=== PATIENT | male | born 1935 | race Caucasian/White ===

== ENCOUNTER 2023-03-02 06:57 | Outpatient (RCR) | payer OTHER, SELFPAY | END 2023-03-02 23:59 | disposition home or self-care (01) | LOC: RST 06:57 | PROVIDERS: ATTENDING PHYSICIAN Otolaryngology; FAMILY PHYSICIAN Family Medicine | DX: R13.14 Dysphagia, pharyngoesophageal phase (principal) | CPT/HCPCS: 92610 ==

== ENCOUNTER → 2023-05-27 06:32 | Day surgery (SDC) | payer OTHER, SELFPAY | LOC: GI 06:32 | PROVIDERS: ATTENDING PHYSICIAN Internal Medicine | DX: R13.10 Dysphagia, unspecified (principal); K22.2 Esophageal obstruction; K29.50 Unspecified chronic gastritis without bleeding | CPT/HCPCS: 43249; 43239; 88305; 88342 ==

== ENCOUNTER → 2024-05-12 16:08 | Outpatient (REF) | payer OTHER, SELFPAY | LOC: RAD 16:08 | PROVIDERS: ATTENDING PHYSICIAN Family Medicine | DX: M54.50 Low back pain, unspecified (principal) | CPT/HCPCS: 72110 ==

== ENCOUNTER → 2024-05-22 14:25 | Outpatient (REF) | payer OTHER, SELFPAY | LOC: HWRAD 14:25 | PROVIDERS: ATTENDING PHYSICIAN Family Medicine | DX: M25.552 Pain in left hip (principal) | CPT/HCPCS: 73523 ==